=== PATIENT | female | born 1990 | race Caucasian/White ===

== ENCOUNTER 2017-08-23 09:01 | Emergency (ER) | payer OTHER ==
[~2017-08-23] VITALS: Ht 165.1 cm; Wt 81.8 kg
[~2017-08-23 09:01] MED LIST: BACTRIM,SEPT1 TABLET PO; BACTROBAN OINTM22 GM TP; CIPRO500 MG PO; LICE TREATMENT118 ML TP; NOHOMEMEDS; PYRIDIUM200 MG PO
[2017-08-23] MEDS ORDERED: MOTRIN800 MG PO (10:38)
[2017-08-23 10:55] VITALS: BP 142/89
== END 2017-08-23 11:12 | disposition home or self-care (01) ==
LOC: EME 09:01
PROC: 0U9MXZZ Drainage of Vulva, External Approach (ICD-10-PCS; principal; 2017-08-23)
DX: N76.4 Abscess of vulva (principal); F17.200 Nicotine dependence, unspecified, uncomplicated
CPT/HCPCS: 99281; 99284

== ENCOUNTER 2018-03-19 18:14 | Observation (INO) | payer OTHER ==
[~2018-03-19] VITALS: Ht 165.1 cm; Wt 82.4 kg
[~2018-03-19 18:14] MED LIST changes: +MOTRIN800 MG PO
[2018-03-19 18:58] LABS: HEMATOCRIT 39.1 % (36.0-46.0); HEMOGLOBIN 13.7 G/DL (11.9-15.5); MCH 31.7 PG (29.0-34.0); MCV 90.5 FL (83-99); PLATELET COUNT 262 K/uL (156-360); RBC DIS.WIDTH-CV 11.9 % (11.8-14.6); RBC DIS.WIDTH-SD 39.3 % (39-53); RED BLOOD COUNT 4.32 M/uL (3.80-5.20); WHITE BLOOD COUNT 12.8 K/uL (4.1-10.2)
[2018-03-19 19:08] LABS: ALBUMIN 4.6 g/dL (3.2-4.8)
[2018-03-19 19:09] LABS: CHLORIDE 107 mEq/L (99-109); POTASSIUM 3.6 mEq/L (3.7-5.4); SODIUM 143 mEq/L (136-147)
[2018-03-19 19:11] LABS: GLUCOSE 101 mg/dL (70-99); TOTAL PROTEIN 7.7 g/dL (6.4-8.3)
[2018-03-19 19:13] LABS: TOTAL BILIRUBIN 0.3 mg/dL (0.0-1.0)
[2018-03-19 19:14] LABS: ALKALINE PHOSPHATASE 53 IU/L (3-129)
[2018-03-19 19:15] LABS: CREATININE 0.8 mg/dL (0.6-1.3); GFR ESTIMATE (CALCULATED) > 59 mL/min/
[2018-03-19 19:16] LABS: AST (GOT) 20 IU/L (2-34); UREA NITROGEN (BUN) 10 mg/dL (9-23)
[2018-03-19 19:18] LABS: ALT (GPT) 34 IU/L (3-49)
[2018-03-19 19:23] LABS: TROP-I INTERPRETATION NEGATIVE; TROPONIN-I < 0.01 ng/mL (0.0-0.30)
[2018-03-19 19:35] LABS: MAGNESIUM 2.5 mg/dL (1.3-2.7)
[2018-03-19 19:48] LABS: QUANTITATIVE HCG < 4.0 MIU/ML
[2018-03-19 20:41] LABS: THYROTROPIN (TSH) 1.2 MIU/L (0.4-5.5)
[2018-03-19 21:04] LABS: AMPHETAMINE NEGATIVE (500 ng/mL); BARBITURATES NEGATIVE (200 ng/mL); BENZODIAZEPINES NEGATIVE (150 ng/mL); BUPRENORPHINE NEGATIVE (10 ng/mL); COCAINE NEGATIVE (150 ng/mL); METHADONE NEGATIVE (200 ng/mL); METHAMPHETAMINE NEGATIVE (500 ng/mL); OPIATES (MORPHINE) NEGATIVE (100 ng/mL); OXYCODONE NEGATIVE (100 ng/mL); PHENCYCLIDINE NEGATIVE (25 ng/mL); PROPOXYPHENE NEGATIVE (300 ng/mL); THC CANNABINOIDS NEGATIVE (50 ng/mL); TRICYCLIC ANTIDEPRESSANTS NEGATIVE (300 ng/mL)
[2018-03-19] MEDS ORDERED: FLEXERIL10 MG PO (22:14)
[2018-03-19] MEDS ORDERED: NEXPLANON68 MG SC (22:14)
[2018-03-19 23:43] LABS: D-DIMER ELISA < 150.00 ng/mLDDU (<230)
[2018-03-20 00:21] VITALS: BP 145/78
[2018-03-20 00:27] LABS: APPEARANCE CLEAR ((CLEAR)); BILIRUBIN NEGATIVE; BLOOD NEGATIVE; COLOR STRAW ((YELLOW)); GLUCOSE (STRIP) NEGATIVE; KETONES NEGATIVE; LEUKOCYTES NEGATIVE; NITRITE NEGATIVE; PROTEIN (STRIP) NEGATIVE; SPECIFIC GRAVITY 1.006 (1.000-1.030); UROBILINOGEN 0.2 MG/DL (0.2-1.0)
[2018-03-20 01:25] LABS: TROP-I INTERPRETATION NEGATIVE; TROPONIN-I < 0.01 ng/mL (0.0-0.30)
[2018-03-20 07:20] VITALS: BP 130/81
[2018-03-20 07:58] LABS: HEMOGLOBIN 13.5 G/DL (11.9-15.5); MCH 30.8 PG (29.0-34.0); MCHC 33.8 G/DL (30.0-36.0); MCV 91.3 FL (83-99); PLATELET COUNT 268 K/uL (156-360); RBC DIS.WIDTH-CV 11.8 % (11.8-14.6); RBC DIS.WIDTH-SD 39.9 % (39-53); RED BLOOD COUNT 4.38 M/uL (3.80-5.20); WHITE BLOOD COUNT 11.1 K/uL (4.1-10.2)
[2018-03-20 08:21] LABS: CHLORIDE 108 MEQ/L (99-109); CREATININE 0.7 MG/DL (0.6-1.3); GFR ESTIMATE (CALCULATED) > 59 mL/min/; GLUCOSE 109 mg/dL (70-99); POTASSIUM 4.4 MEQ/L (3.7-5.4); SODIUM 138 MEQ/L (136-147); UREA NITROGEN (BUN) 8 mg/dL (9-23)
[2018-03-20 08:35] LABS: TROP-I INTERPRETATION NEGATIVE; TROPONIN-I < 0.01 ng/mL (0.0-0.30)
[2018-03-20 09:12] LABS: PHOSPHORUS 4.6 mg/dL (2.5-4.9)
[2018-03-20 11:34] VITALS: BP 120/72
[2018-03-20] MEDS ORDERED: LOPRESSOR25 MG PO (13:37)
== END 2018-03-20 14:22 | disposition home or self-care (01) ==
LOC: EME 18:14 → 4EAST 23:12 → EDOF 23:12 → 4EAST 23:12 → ENRESERV 23:16 → 4EAST 03-20 00:14
PROVIDERS: Emergency Medicine; Hospitalist; Nurse Practitioner Family
PROC: B246ZZZ Ultrasonography of Right and Left Heart (ICD-10-PCS; principal; 2018-03-20)
DX: I47.2 Ventricular tachycardia (principal); E87.6 Hypokalemia; D72.829 Elevated white blood cell count, unspecified; M41.9 Scoliosis, unspecified; F11.11 Opioid abuse, in remission; F17.210 Nicotine dependence, cigarettes, uncomplicated; F41.9 Anxiety disorder, unspecified; Z88.5 Allergy status to narcotic agent
CPT/HCPCS: 71046; 80048; 80053; 81003; 83735; 84100; 84439; 84443; 84484; 84702; 85027; 85379; 93005; 93306; 99281; 99285; G0378